=== PATIENT | male | born 1970 | race Two or more races ===

== ENCOUNTER 2023-08-24 15:35 | Outpatient (CLI) | payer OTHER | END 2023-08-24 15:42 | disposition home or self-care (01) | LOC: LAB 15:35 → EDSEX 15:35 → LAB 15:42 | DX: R97.20 Elevated prostate specific antigen [PSA] (principal) ==

== ENCOUNTER 2023-09-23 07:02 | Outpatient (CLI) | payer OTHER | END 2023-09-23 07:08 | disposition home or self-care (01) | LOC: SONOGRAMA 07:02 | PROVIDERS: ATTEND Urology | DX: D29.1 Benign neoplasm of prostate (principal); N41.1 Chronic prostatitis ==